=== PATIENT | female | born 1970 | race Two or more races ===

== ENCOUNTER → 2021-06-29 | Emergency (ER) | payer OTHER ==
[~2021-06-29] VITALS: Ht 152.4 cm; Wt 45.4 kg
[~2021-06-29] MED LIST: CATAFLAM50 MG; FIORINAL CAPSUL1 CAP PO; IMITREX100 MG; KLONOPIN1 MG/TAB PO; LAMICTAL100 MG PO; LUNESTA2 MG PO; MEDROXYPROGESTE10 MG PO; PAXIL20 MG PO
== END | disposition home or self-care (01) ==
LOC: ER 20:54
DX: N93.9 Abnormal uterine and vaginal bleeding, unspecified (principal)